=== PATIENT | male | born 1960 | race Caucasian/White ===

== ENCOUNTER 2020-03-21 21:46 | Inpatient (IN) | payer MEDICARE, MEDICAID ==
[2020-03-22 00:08] VITALS: BMI 29.5
[2020-03-22] MEDS ORDERED: Senokot S 8.6-50 MG TAB PO PRN (01:03)
[2020-03-22] MEDS ORDERED: HYDROcodone/Acetaminophen 5/325 mg Tablet PO PRN (01:03)
[2020-03-22] MEDS ORDERED: Bisacodyl 10 MG SUPP PR PRN (01:03)
[2020-03-22] MEDS ORDERED: Acetaminophen 325 MG TAB PO PRN (01:03)
[2020-03-22] MEDS ORDERED: Bisacodyl 5 MG TAB PO PRN (01:03)
[2020-03-22] MEDS ORDERED: Guaifenesin DM 100-10/5 ML UDCUP PO PRN (01:03)
[2020-03-22] MEDS ORDERED: cloNIDine 0.1 MG TAB PO PRN (01:10)
[2020-03-22] MEDS ORDERED: Morphine 2 MG/ML SYRINGE SLOW IVP PRN (01:10)
[2020-03-22] MEDS ORDERED: Promethazine HCl 12.5 MG in Sodium Chloride 0.9% 50 ML IVPB PRN (01:10)
[2020-03-22] MEDS ORDERED: Ondansetron PF 4 MG/2 ML Vial IVP PRN (01:10)
[2020-03-22] MEDS ORDERED: Labetalol HCl 100 MG/20 ML VIAL SLOW IVP PRN (01:10)
--- NOTE | 2020-03-22 01:16 | PDOC.HHP ---
Hospitalist HPI - History of Present Illness Abnormal labwork History of Present Illness: Patient is a 59 year old male with PMH HTN, GERD who presents as transfer from [place] for L ureterolithiasis and severe hydroureter, ABIODUN. he was at jail [facility] and rehab, Dr Obando, and has labwork revealing Na 157, Cr 3.1 which is worse for patient and is increased significantly from labs in December, he was sent to outside hospital for workup. There, labs performed and results as below. CT imaing performed revealing L ureterolithiasis and severe hydroureter. At outside hospital, they discussed with Dr Liao who agreed to follow and requested transfer here, patient arrived on unit, states he feels well, wants water, has trouble urinating, otherwise at baseline. pleasant and conversive. he has chronic contractions from cerebral palsy. Sister in law/contact Nettie Carter called but did not answer. Transferred here for urology eval. UA equivocal, was given ceftriaxone at outside hospital. Outside records reviewed WBC 16 hgb 10.9 plt 249 Na 146 CO2 20 Cr 2.91 AKP 144 lipase 113 UA - trace WBC, small blood, Hospitalist ROS - Review of Systems Constitutional: denies: fever, chills, sweats, weakness, malaise, other Eyes: denies: pain, vision change, conjunctivae inflammation, eyelid inflammation, redness, other ENT: denies: ear pain, ear discharge, nose pain, nose discharge, nose congestion , mouth pain, mouth swelling, throat pain, throat swelling, other Respiratory: denies: cough, dry, shortness of breath, hemoptysis, SOB with excertion, pleuritic pain, sputum, wheezing, other Cardiovascular: denies: chest pain, palpitations, orthopnea, paroxysmal noc. dyspnea, edema, light headedness, other Gastrointestinal: denies: nausea, vomiting, abdominal pain, diarrhea, constipation, melena, hematochezia, other Genitourinary: reports: dysuria, incontinence. denies: frequency, hematuria, retention Musculoskeletal: denies: neck pain, shoulder pain, arm pain, back pain, hand pain, leg pain, foot pain, other Skin: denies: rash, lesions, tere, bruising, other Neurological: denies: weakness, numbness, incoordination, change in speech, confusion, seizures, other All other systems reviewed; all pertinent +/- noted in HPI/Subj Hospitalist History - Past Medical History Other Medical History: gerd HTN cerebral palsy - Past Surgical History Other Surgical History: unknown discussed with patient - Family History Other Family History: unknown discussed with patient - Social History Smoking Status: Never smoker Alcohol: reports: None Drugs: reports: none - Exam General Appearance: NAD, awake alert Eye: PERRL, anicteric sclera ENT: normocephalic atraumatic, no oropharyngeal lesions, moist mucosa Neck: supple, symmetric, no JVD, no thyromegaly, no lymphadenopathy, no carotid bruit Heart: RRR, no murmur, no gallops, no rubs, normal peripheral pulses Respiratory: CTAB, no wheezes, no rales, no ronchi, normal chest expansion, no tachypnea, normal percussion Gastrointestinal: soft, non-tender, non-distended, normal bowel sounds, no palpable masses, no hepatomegaly, no splenomegaly, no bruit Extremities: no cyanosis, no clubbing, no edema Skin: normal turgor, no lesions, no rashes Neurological: cranial nerve grossly intact, normal sensation to touch, no weakness, no focal deficits, no new deficit Neurological - other findings: L sided contracture Musculoskeletal: normal tone, normal strength, no muscle wasting Psychiatric: normal affect, normal behavior, A&O x 3 Hospitalist Results - Labs Lab results: see HPI outside hosptial CT w/ 1x1.5cm kdiney stone in L mid ureter causing severe L sided hydronephrosis and hydroureter w/ stranding of L kidney, R kidney atrophic Hospitalist H&P A/P - Plan Plan: 59 year old male with PMH HTN, GERD admitted for: # worsening CKD/acute renal failure # 1x1.5cm kidney stone in L mid ureter # severe L sided hydronephrosis and hydroureter w/ stranding of L kidney outside hosptial CT w/ 1x1.5cm kdiney stone in L mid ureter causing severe L sided hydronephrosis and hydroureter w/ stranding of L kidney, R kidney atrophic - unknown baseline but Cr has increased from about 2 to >3 since Dec, UA equivocal started on treatment at outside hospital, will continue here - start ceftriaxone and check urine culture - apprecaiate Dr Liao urology who agreed to follow with us, NPO in case of surgery needed - hold ari inhibitor - trend BMP - IVF # hypernatremia - much less severe on labwork here, perhaps lab error? trend BMP. # HTN - resume home meds except for ari inhibitor, PRNs ordered # intellectual disability, history of cerebral palsy - noted, relatively good history obtained from documents, unable to contact sister in labs Nettie, attempt again as needed. patient pleasant and conversive, aox1-2, lives in jail
[2020-03-22] MEDS: Sodium Chloride 0.9% 1,000 ML IV SCH ×3 (02:13→23:31)
[2020-03-22 06:02] LABS: INR-International Normal Ratio 1.1
[2020-03-22 06:09] LABS: Band 1 % (5-11); Eosinophils 2 % (0-10); Hemoglobin 10.8 g/dL (14.0-18.0); Lymphocytes 19 % (21-51); MDiff Complete? YES; Mean Corpuscular Hemoglobin 29.3 pg (27.0-31.0); Mean Corpuscular Volume 91.6 fL (78.0-98.0); Mean Platelet Volume 10.7 fL (7.4-10.4); Monocytes 7 % (0-10); Neutrophil 71 % (42-75); Platelet Count 131 thou/uL (130-400); Platelet Morphology Comment Appears Adequate; White Blood Cell (WBC) Count 12.7 thou/uL (4.8-10.8)
[2020-03-22 06:36] LABS: BUN (Urea Nitrogen) 36 mg/dL (8.4-25.7); Calc. Creatinine Clearance 36 mL/min (70-130); Calcium 8.2 mg/dL (7.8-10.44); Carbon Dioxide 14 mmol/L (23-31); Chloride 118 mmol/L (98-107); Estimated GFR-MDRD 23; Glucose 88 mg/dL (80-115); Potassium 4.3 mmol/L (3.5-5.1); Sodium 145 mmol/L (136-145)
[2020-03-22] MEDS ORDERED: Famotidine 20 MG TAB PO SCH (09:00)
[2020-03-22] MEDS: Amlodipine 10 MG TAB PO SCH (09:25)
[2020-03-22] MEDS: Polyethylene Glycol 3350 17 GM Packet PO SCH (09:34)
[2020-03-22] MEDS ORDERED: Ondansetron PF 4 MG/2 ML Vial ONE (09:51)
[2020-03-22] MEDS ORDERED: Lidocaine 1% PF 5 ML VIAL ONE (09:51)
[2020-03-22] MEDS ORDERED: PROPOFOL 200 MG/20 ML VIAL ONE (09:51)
[2020-03-22] MEDS ORDERED: EPHEDRINE 25 MG/5 ML SYRINGE ONE (09:51)
[2020-03-22] MEDS ORDERED: Dexamethasone 20 MG/5 ML VIAL ONE (09:51)
[2020-03-22 10:03] LABS: Anion Gap 17 mmol/L (10-20)
[2020-03-22] MEDS ORDERED: Iothalamate Meglumine 60% 30 ML VIAL FS ONE (11:48)
--- NOTE | 2020-03-22 12:20 | PDOC.HOSPP ---
- Subjective Encounter Date: 03/22/20 Encounter Time: 08:50 Subjective: not in distress communicates well and follows verbal stimuli mild right quadrants pain, no nausea wants to eat breakfast - Objective Vital Signs & Weight: Vital Signs (12 hours) Temp Pulse Resp BP BP Pulse Ox 03/22/20 09:38 80 167/89 H 03/22/20 09:25 80 183/68 H 03/22/20 07:52 98.1 F 80 20 183/68 H 95 Weight Weight 205 lb 14.4 oz I&O: 03/21/20 03/22/20 03/23/20 06:59 06:59 06:59 Intake Total 740 Balance 740 Result Diagrams: 03/22/20 05:42 03/22/20 05:42 Hospitalist ROS - Medication Medications: Active Medications Generic Name Dose Route Start Last Admin Trade Name Freq PRN Reason Stop Dose Admin Amlodipine Besylate 10 mg 03/22/20 09:00 03/22/20 09:25 Norvasc PO 10 mg DAILY EMILIA Administration Sodium Chloride 1,000 mls @ 100 mls/hr 03/22/20 01:15 03/22/20 02:13 Normal Saline 0.9% IV 1,000 mls .Q10H EMILIA Administration Pantoprazole Sodium 40 mg 03/22/20 09:00 03/22/20 09:26 Protonix PO 40 mg DAILY EMILIA Administration Polyethylene Glycol 17 gm 03/22/20 09:00 03/22/20 09:34 Miralax PO Not Given DAILY EMILIA Sodium Chloride 10 ml 03/22/20 09:00 03/22/20 09:33 Flush - Normal Saline IVF Not Given Q12HR EMILIA - Exam General Appearance: awake alert Eye: PERRL, anicteric sclera ENT: no oropharyngeal lesions, moist mucosa Neck: supple, no JVD Heart: RRR, no murmur Respiratory: no wheezes, no rales Gastrointestinal: soft, non-tender, non-distended, normal bowel sounds Extremities: no cyanosis, no edema Neurological: cranial nerve grossly intact, no focal deficits Hosp A/P (1) left ureterolithiasis Status: Acute (2) Hydronephrosis, left Code(s): N13.30 - UNSPECIFIED HYDRONEPHROSIS Status: Acute (3) Renal colic on left side Code(s): N23 - UNSPECIFIED RENAL COLIC Status: Acute (4) Intellectual disability Code(s): F79 - UNSPECIFIED INTELLECTUAL DISABILITIES Status: Chronic (5) ABIODUN (acute kidney injury) Code(s): N17.9 - ACUTE KIDNEY FAILURE, UNSPECIFIED Status: Acute (6) Metabolic acidosis Code(s): E87.2 - ACIDOSIS Status: Acute (7) HTN (hypertension) Code(s): I10 - ESSENTIAL (PRIMARY) HYPERTENSION Status: Chronic Qualifiers: Hypertension type: essential hypertension Qualified Code(s): I10 - Essential (primary) hypertension - Plan is npo for possible urologic procedure by is on ceftriaxone, iv fluids, norvasc, nebs prn creatinine around 2.8, hco3 is 14 hemostable
[2020-03-22] MEDS ORDERED: cefTRIAXone\\ROCEPHIN 1 GM VIAL ONE (12:32)
[2020-03-22] MEDS ORDERED: Sodium Chloride 0.9% 100 ML ONE (12:32)
[2020-03-22] MEDS ORDERED: Fentanyl 100 MCG/2 ML VIAL ONE (13:15)
[2020-03-22] MEDS ORDERED: Promethazine HCl 25 MG/ML VIAL SLOW IVP PRN (13:55)
[2020-03-22] MEDS ORDERED: Promethazine HCl 25 MG/ML VIAL IM PRN (13:55)
[2020-03-22] MEDS ORDERED: Ondansetron HCl/PF 4 MG/2 ML Vial IVP PRN (13:55)
--- NOTE | 2020-03-22 14:08 | RAD ---
RETROGRADE PYELOGRAM: 03/22/20 HISTORY: Stent placement. A single image is presented for interpretation which is showing placement of a left ureteral stent. IMPRESSION: Left ureteral stent placement. POS: YUNIER
--- NOTE | 2020-03-22 20:49 | CON ---
DATE OF CONSULTATION: 03/22/2020 CONSULTING PHYSICIAN: Quang Liao MD. REASON FOR CONSULTATION: Ureteral stone with acute kidney injury. HISTORY OF PRESENT ILLNESS: Mr. Carter is a 59-year-old white male with cerebral palsy, who was transferred from [facility] for ureterolithiasis, severe hydronephrosis and acute kidney injury. He was at his fci in [facility], where he had lab work done demonstrating a creatinine that was elevated over the past three months. His sodium initially was okay, but subsequently on the most recent check came up to 157. He was then sent to [facility] ER for workup. He underwent a CT scan there, which demonstrated a 1 cm left mid ureteral stone with severe hydronephrosis and what appeared to be an atrophic right kidney. The patient was then transferred to [place] for definitive management. I was contacted upon the transfer. The patient is unable to give any adequate history as he has a fairly severe MR. Most of the history is obtained through medical records and medical staff. The patient's [id number] is apparently his primary power of gambreler at the current time. Per outside records, he does apparently have some difficulty urinating at baseline, but otherwise has not had any other significant problems. It is unclear whether the patient has had previous urolithiasis. ALLERGIES: 1. ARICEPT. 2. BACTRIM. 3. HYDROCHLOROTHIAZIDE. 4. ALL THIAZIDE TYPE DIURETICS. HOME MEDICATIONS: It is unknown at this point what medications the patient is currently taking. PAST MEDICAL HISTORY: 1. Glaucoma. 2. Gastroesophageal reflux disease. 3. Cerebral palsy. 4. Hypertension. 5. Depression. 6. Anxiety. 7. Dementia. 8. Muscle atrophy. 9. Hypokalemia. PAST SURGICAL HISTORY: Unknown. FAMILY HISTORY: Noncontributory, not able to be obtained from the patient. SOCIAL HISTORY: The patient apparently is residing at [facility]. It is unclear whether or not he has previously or currently uses any type of alcohol, tobacco products, or illicit drug use. REVIEW OF SYSTEMS: A 12-point review of systems unable to be obtained secondary to the patient's significant MR and inability to answer questions appropriately. PHYSICAL EXAMINATION: VITAL SIGNS: Current vitals are stable. GENERAL: No apparent distress. He is alert. He does not answer questions appropriately, but does answer simple questions. Well nourished, well developed, overweight. HEENT: Normocephalic, atraumatic. Pupils are symmetric and round. Trachea midline. Moist mucous membranes. CARDIOVASCULAR: Regular rate and rhythm. Normal S1, S2. Symmetric pulses. CHEST: No increased work of breathing. Symmetric expansion of lungs, clear anteriorly. ABDOMEN: Soft, nontender, and nondistended. Positive bowel sounds. Difficult to palpate organs secondary to obesity. No obvious hernias. : The patient is circumcised. No lesions or rashes noted. The patient is incontinent. Does wear a diaper. EXTREMITIES: No clubbing, cyanosis, or edema. MUSCULOSKELETAL: There is severe lower extremity atrophy as well as deformity secondary to the patient's cerebral palsy. Upper extremities appear relatively unremarkable. Range of motion was not tested. NEUROLOGICAL: Cranial nerves 2 through 12 appear grossly intact. There is significantly decreased motor strength of the lower extremities. Upper extremities seem relatively normal for the most part. SKIN: Warm, dry. No rashes or lesions. Good turgor. PSYCHIATRIC: Alert and oriented x2. Mood and affect seem somewhat simple, but otherwise appropriate. LABORATORY EVALUATION: A full set of labs are in the [facility] system, which I have reviewed. Of note, the patient's white count is 12.7. Creatinine of 2.81, sodium of 145. UA demonstrates hazy colored urine, trace leukocyte esterase, negative nitrites, 1+ bacteria, 7 to 10 white cells, 4 to 6 red cells. ASSESSMENT AND PLAN: A 59-year-old white male with cerebral palsy and acute kidney injury secondary to a left mid ureteral stone measuring about 1 cm and a solitary functioning kidney. It is questionable how much function the right kidney has given the atrophy. In either case, the patient does urgently need a ureteral stent to allow for drainage of the kidney. The patient does have a little bit of an elevated white count and UA, which is not entirely exclusively urinary infection. Therefore, I would not recommend ureteroscopy at this time. I will go ahead and just place a stent now and obtain a urine culture. If the culture is negative, I think we can proceed in the near future with ureteroscopy and removal of the stone. The patient will be at relatively high risk for ureteral stricture given that he has had a long-term impacted stone. Nonetheless, we will go ahead and remove this and follow the patient afterwards to see how he is doing. On this current admission, I think the patient can be discharged when he shows improvement of his renal function after a stent placement. We will then schedule his ureteroscopy at a subsequent date. Job ID: [id number]
--- NOTE | 2020-03-22 20:50 | OP ---
DATE OF PROCEDURE: 03/22/2020 SERVICE: Urology. PREOPERATIVE DIAGNOSIS: Left ureteral stone with acute kidney injury. POSTOPERATIVE DIAGNOSIS: Left ureteral stone with acute kidney injury. PROCEDURE PERFORMED: Cystoscopy and left ureteral stent placement, 6 x 26 double-J stent. INDICATION FOR PROCEDURE: Mr. Carter is a 59-year-old white male with a solitary functioning left kidney with atrophic right kidney and a left ureteral stone with acute kidney injury. He was transferred from [facility] for the acute kidney injury and hypernatremia. His kidney function has improved along with his sodium with hydration. He is now being brought to the operating room for cystoscopy and ureteral stent placement. Risks and benefits were discussed with the sister-in- law who is his power of corporate associate attorney and she has agreed to proceed forward. DESCRIPTION OF PROCEDURE: After identification of armband and verification of consent patient was brought back to the operating room, where he underwent general anesthesia with an LMA. He was then placed in the dorsal lithotomy position and prepped and draped in usual sterile fashion. After appropriate time-out, a lubricated 22-Japanese rigid cystoscope was introduced per urethra into the bladder. The prostate was minimally obstructive. The bladder shows heavy trabeculation with poor capacity. Both ureters were in the orthotopic location. There were no stones or lesions noted. Attention was turned to left ureteral orifice which was cannulated with a 0.035 Glidewire. The wire was able to be manipulated past the stone with a little bit of difficulty, but ultimately went up into the renal calyx. A 6 x 26 double-J stent was advanced over the Glidewire up to the level of the kidney and then the Glidewire removed leaving a good curl in the kidney and a good curl in the bladder. The bladder was then emptied and cystoscope removed. The patient then awakened and taken to PACU for recovery in stable condition. COMPLICATIONS: None. ESTIMATED BLOOD LOSS: Minimal. RETAINED TUBES AND DRAINS: A 6 x 26 double-J stent on the left. SPECIMEN: None. DISPOSITION: The patient will be admitted back to the hospitalist Service. Once he has evidence of improved renal function, he can be discharged home. We have taken a urine culture during the case. If his urine culture is negative, we can bring him back in the near future for ureteroscopy. If there is evidence of urinary tract infection, we will plan to treat for antibiotics for 7 days and then plan for surgery once his infection is cleared. Job ID: [id number] [facility]
[2020-03-22] MEDS: cefTRIAXone\\ROCEPHIN 1 GM in Sodium Chloride 0.9% 100 ML IVPB SCH (23:32)
[2020-03-23 05:14] LABS: Bacteria/HPF 1+ HPF (None Seen); Bilirubin Negative (Negative); Blood, Urine 1+ (Negative); Clarity Clear (Clear); Glucose, Urine (Dipstick) Normal (Negative); Leukocyte 25 Leu/uL (Negative); Nitrite Negative (Negative); Protein, Urine (Dipstick) 100 mg/dL (Neg-Trace); RBC/HPF 21-50 HPF (0-3); Squamous Epithelial None Seen HPF (0-3); Urobilinogen Normal mg/dL (Less than 2)
[2020-03-23] MEDS: Amlodipine 10 MG TAB PO SCH (08:27)
[2020-03-23] MEDS: Famotidine 20 MG TAB PO SCH (08:27)
[2020-03-23] MEDS: Enoxaparin Sodium 40 MG/0.4 ML SYRINGE SC SCH (08:28)
[2020-03-23] MEDS: Sodium Chloride 0.9% 1,000 ML IV SCH ×2 (10:10→17:30)
[2020-03-23] MEDS: Polyethylene Glycol 3350 17 GM Packet PO SCH (10:10)
[2020-03-23 10:41] LABS: #Monocytes 0.3 thou/uL (0.11-0.59); #Neutrophils 11.7 thou/uL (1.40-6.50); %Basophils 0.1 % (0.0-1.0); %Eosinophils 0.1 % (0.0-10.0); %Lymphocytes 7.9 % (21.0-51.0); %Monocytes 2.4 % (0.0-10.0); %Neutrophils 89.6 % (42.0-75.0); Mean Corpuscular HGB CONC 32.2 g/dL (32.0-36.0); Mean Corpuscular Hemoglobin 29.5 pg (27.0-31.0); Mean Corpuscular Volume 91.6 fL (78.0-98.0); Mean Platelet Volume 9.8 fL (7.4-10.4); Platelet Count 233 thou/uL (130-400); RBC Distribution Width 13.9 % (11.5-14.5); Red Blood Cell (RBC) Count 3.71 mill/uL (4.70-6.10); White Blood Cell (WBC) Count 13.1 thou/uL (4.8-10.8)
[2020-03-23 11:03] LABS: ALT (SGPT) 9 U/L (8-55); AST (SGOT) 10 U/L (5-34); Albumin 3.3 g/dL (3.4-4.8); Alkaline Phosphatase 129 U/L (40-110); Anion Gap 16 mmol/L (10-20); BUN (Urea Nitrogen) 42 mg/dL (8.4-25.7); Bilirubin, Total 0.3 mg/dL (0.2-1.2); Calc. Creatinine Clearance 33 mL/min (70-130); Calcium 7.7 mg/dL (7.8-10.44); Carbon Dioxide 17 mmol/L (23-31); Chloride 109 mmol/L (98-107); Estimated GFR-MDRD 21; Globulin 3.5 g/dL (2.4-3.5); Glucose 251 mg/dL (80-115); Potassium 3.9 mmol/L (3.5-5.1); Protein, Total 6.8 g/dL (5.8-8.1); Sodium 138 mmol/L (136-145)
--- NOTE | 2020-03-23 12:13 | PDOC.HOSPP ---
- Subjective Encounter Date: 03/23/20 Encounter Time: 09:00 Subjective: no sob or abd pain ate his breakfast well - Objective Vital Signs & Weight: Vital Signs (12 hours) Temp Pulse Resp BP BP Pulse Ox 03/23/20 11:06 97.4 F L 81 14 167/69 H 96 03/23/20 08:27 90 166/87 H 03/23/20 08:00 95 03/23/20 07:24 98.2 F 90 14 166/87 H 95 03/23/20 06:05 97.6 F 87 18 169/71 H 96 Weight Weight 205 lb 14.4 oz I&O: 03/22/20 03/23/20 03/24/20 06:59 06:59 06:59 Intake Total 740 1680 Balance 740 1680 Result Diagrams: 03/23/20 10:24 03/23/20 10:24 Hospitalist ROS - Medication Medications: Active Medications Generic Name Dose Route Start Last Admin Trade Name Freq PRN Reason Stop Dose Admin Amlodipine Besylate 10 mg 03/22/20 09:00 03/23/20 08:27 Norvasc PO 10 mg DAILY EMILIA Administration Enoxaparin Sodium 40 mg 03/23/20 09:00 03/23/20 08:28 Lovenox SC 40 mg 0900 EMILIA Administration Famotidine 20 mg 03/23/20 09:00 03/23/20 08:27 Pepcid PO 20 mg DAILY EMILIA Administration Sodium Chloride 1,000 mls @ 100 mls/hr 03/22/20 01:15 03/23/20 10:10 Normal Saline 0.9% IV Not Given .Q10H EMILIA Ceftriaxone Sodium 1 gm/ 100 mls @ 200 mls/hr 03/22/20 23:00 03/22/20 23:32 Sodium Chloride IVPB 03/28/20 23:01 100 mls Q24HR EMILIA Administration Pantoprazole Sodium 40 mg 03/22/20 09:00 03/23/20 08:27 Protonix PO 40 mg DAILY EMILIA Administration Polyethylene Glycol 17 gm 03/22/20 09:00 03/23/20 10:10 Miralax PO Not Given DAILY EMILIA Sodium Chloride 10 ml 03/22/20 09:00 03/23/20 10:10 Flush - Normal Saline IVF Not Given Q12HR EMILIA - Exam General Appearance: awake alert Eye: PERRL, anicteric sclera ENT: no oropharyngeal lesions, moist mucosa Neck: supple, no JVD Heart: RRR, no murmur Respiratory: no wheezes, no rales Gastrointestinal: soft, non-tender, non-distended, normal bowel sounds Extremities: no cyanosis, no edema Neurological: cranial nerve grossly intact, no new deficit Hosp A/P (1) left ureterolithiasis Status: Acute (2) Hydronephrosis, left Code(s): N13.30 - UNSPECIFIED HYDRONEPHROSIS Status: Acute (3) Renal colic on left side Code(s): N23 - UNSPECIFIED RENAL COLIC Status: Acute (4) Intellectual disability Code(s): F79 - UNSPECIFIED INTELLECTUAL DISABILITIES Status: Chronic (5) ABIODUN (acute kidney injury) Code(s): N17.9 - ACUTE KIDNEY FAILURE, UNSPECIFIED Status: Acute (6) Metabolic acidosis Code(s): E87.2 - ACIDOSIS Status: Acute (7) HTN (hypertension) Code(s): I10 - ESSENTIAL (PRIMARY) HYPERTENSION Status: Chronic Qualifiers: Hypertension type: essential hypertension Qualified Code(s): I10 - Essential (primary) hypertension - Plan is s/p stent to left ureter 03/22/2020 is on ceftriaxone, iv fluids, norvasc, nebs prn creatinine around 3, nephrology consult, may need usg in am if creatinine raises up he is a snf resident with intellectual disability but communicates and follows verbal stimuli will give updates to sister in law later today hemostable
[2020-03-23] MEDS: cefTRIAXone\\ROCEPHIN 1 GM in Sodium Chloride 0.9% 100 ML IVPB SCH (23:55)
--- NOTE | 2020-03-24 00:05 | CON ---
DATE OF CONSULTATION: HISTORY OF PRESENT ILLNESS: Mr. Carter is a 59-year-old white male with known history of cerebral palsy and was initially admitted for an acute kidney injury. There was a left hydronephrosis on imaging and he has undergone cystoscopy with left ureteral stent placement. We are now being consulted for the acute kidney injury on top of his chronic renal failure. Renal function is relatively stable, but not dramatically improved after placement of the ureteral stent as well as with IV hydration. Imaging suggested that his right kidney is atrophic and the left kidney has some degree of chronicity. My optimism for a dramatic improvement with his kidney function is less. He may have a chronic renal failure from chronic obstructive uropathy. Since the patient has cerebral palsy and he is not able to communicate, he probably was not able to complain of some flank pain in the past. In addition, he does wear a diaper. REVIEW OF SYSTEMS: Positive for no chest pain or shortness of breath. No nausea. No vomiting. No diarrhea. No constipation. No productive cough. No fever or chills. Denies any abdominal pain. PAST MEDICAL HISTORY: Includes GERD, cerebral palsy, hypertension, depression, anxiety, glaucoma. HOME MEDICATIONS: Not currently available, but he is currently on the following hospital medications of: 1. [place] 5/325 q.4. 2. DuoNeb q.2 p.r.n. 3. Norvasc 10 mg daily. 4. Ceftriaxone 1 g q.24 hours. 5. Lovenox 40 mg subcu daily. 6. Pepcid 20 mg daily. 7. Protonix 40 mg daily. 8. Normal saline 100 mL/hour. PAST MEDICAL HISTORY: 1. Recent diagnosis of chronic renal failure from obstructive uropathy. 2. Recent finding of an indirect inguinal hernia, left-sided. PAST SURGICAL HISTORY: Status post left ureteral stent placement, status post cystoscopy. SOCIAL HISTORY: The patient is a resident in [facility]. He is single. No children. He is medically disabled from cerebral palsy. No smoking. No alcohol intake. No IV drug abuse. FAMILY HISTORY: Two other siblings, but he is an adopted child from the family. The two other siblings are . He is being taken care by his [id number]. ALLERGIES: 1. ARICEPT. 2. BACTRIM. 3. HYDROCHLOROTHIAZIDE. TRAUMA: None. IMMUNIZATION: Up-to-date. HOSPITALIZATIONS: Please see past medical history. FAMILY HISTORY: No family history of ESRD. PHYSICAL EXAMINATION: VITAL SIGNS: Blood pressure 161/80, heart rate 72, respiratory rate 14, temperature 97.4, and pulse ox 95 percent on room air. GENERAL: The patient is awake. He is alert. He has a limited verbal response to my questioning. He is not fully oriented. SKIN: Adequate turgor. HEENT: He has pinkish conjunctivae. Anicteric sclerae. NECK: No neck mass. No carotid bruits. No JVD. CHEST: No deformities. LUNGS: Clear breath sounds. HEART: Normal sinus rhythm. No murmurs, no gallops, no rubs. ABDOMEN: Globular, soft nontender. No masses. EXTREMITIES: Deformed extremities with some degree of contracture. LABORATORY DATA: Laboratories of March 23, 2020; white count 13.1, hemoglobin 11, sodium 138, potassium 3.9, chloride 109, carbon dioxide 17, BUN 42, creatinine 3.1, GFR 21 mL/minute, glucose 251, calcium 7.7, albumin 3.3. March 22, 2020; BUN 36, creatinine 2.81. March 21, 2020; BUN 39, creatinine 2.91. April 15, 2013; creatinine 0.47. ASSESSMENT/PLAN: 1. Chronic renal failure - most likely secondary to chronic obstructive uropathy. Right kidney is noted to be atrophic, probably from chronic obstruction. Left kidney showed some scarring of the left kidney. He also has severe marked hydronephrosis. Currently, a ureteral stent placement has been done. I will agree with current management. Continue supportive care. Continue gentle volume hydration. No indication for any dialytic intervention. I had a long discussion with the [id number] regarding prognosis of his chronic renal failure. 2. We will be rechecking PTH as well as serum phosphorus tomorrow. 3. Overall agree with current management. Job ID: [id number]
[2020-03-24 05:27] LABS: #Lymphocytes 1.5 thou/uL (1.20-3.40); #Monocytes 0.8 thou/uL (0.11-0.59); #Neutrophils 10.9 thou/uL (1.40-6.50); %Eosinophils 0.1 % (0.0-10.0); %Lymphocytes 11.2 % (21.0-51.0); %Monocytes 6.2 % (0.0-10.0); %Neutrophils 82.3 % (42.0-75.0); Hemoglobin 10.6 g/dL (14.0-18.0); Mean Corpuscular Hemoglobin 28.9 pg (27.0-31.0); Mean Corpuscular Volume 90.5 fL (78.0-98.0); Mean Platelet Volume 9.9 fL (7.4-10.4); Platelet Count 232 thou/uL (130-400); Red Blood Cell (RBC) Count 3.65 mill/uL (4.70-6.10); White Blood Cell (WBC) Count 13.3 thou/uL (4.8-10.8)
[2020-03-24 05:50] LABS: ALT (SGPT) 9 U/L (8-55); AST (SGOT) 10 U/L (5-34); Albumin 3.2 g/dL (3.4-4.8); Alkaline Phosphatase 114 U/L (40-110); Anion Gap 14 mmol/L (10-20); BUN (Urea Nitrogen) 46 mg/dL (8.4-25.7); Bilirubin, Total 0.2 mg/dL (0.2-1.2); Calc. Creatinine Clearance 35 mL/min (70-130); Calcium 7.7 mg/dL (7.8-10.44); Carbon Dioxide 20 mmol/L (23-31); Chloride 113 mmol/L (98-107); Estimated GFR-MDRD 22; Globulin 3.5 g/dL (2.4-3.5); Glucose 124 mg/dL (80-115); Potassium 3.5 mmol/L (3.5-5.1); Protein, Total 6.7 g/dL (5.8-8.1); Sodium 143 mmol/L (136-145)
--- NOTE | 2020-03-24 06:48 | PRG ---
DATE OF SERVICE: 03/23/2020 SUBJECTIVE: The patient is still looking good physically. He does not answer questions appropriately due to severe MR. Family members are not available at bedside at the current time of the visit. OBJECTIVE: VITAL SIGNS: Temperature 97.4, pulse 72, respirations 14, blood pressure 161/80, saturation 95% on room air. GENERAL: In no apparent distress. Alert, answering questions, but inappropriately. CARDIOVASCULAR: Regular rate and rhythm. ABDOMEN: Soft, nontender, and nondistended. Positive bowel sounds. : No swelling, edema, or erythema. No catheter in place. EXTREMITIES: No clubbing, cyanosis, or edema. LABORATORY EVALUATION: Full set of labs is in the [facility] system, which I have reviewed. Of note, the patient's white count has increased slightly to 13.1. Creatinine has also worsened slightly to 3.1. ASSESSMENT AND PLAN: A 59-year-old white male with cerebral palsy and mental retardation with solitary functioning left kidney, status post left ureteral stent placement with worsening creatinine. It is unclear at this time why the patient's creatinine has worsened after stent placement. On reviewing notes from [facility], apparently the patient got a noncontrasted scan; although at the time of his stent placement, it was unclear if there was an opacity within the renal pelvis consistent with retained contrast. I am not sure if the patient did get contrast or not; although I do not think he did based on what was written, although I do not have the actual imaging report. I do see that Nephrology has been consulted, and I agree with involving them at this point. I would recommend checking his creatinine tomorrow and continue to monitor. A Jernigan catheter may become necessary if the patient needs strict inputs and outputs as the patient is incontinent and voids into a diaper, and it is unclear exactly how much he is urinating. I will continue to follow and make recommendations as necessary. We will defer on ureteroscopy until the patient's renal failure has improved. Job ID: [id number]
[2020-03-24] MEDS: Sodium Chloride 0.9% 1,000 ML IV SCH ×2 (06:49→20:00)
[2020-03-24] MEDS: Polyethylene Glycol 3350 17 GM Packet PO SCH (08:39)
[2020-03-24] MEDS: Enoxaparin Sodium 40 MG/0.4 ML SYRINGE SC SCH (08:39)
[2020-03-24] MEDS: Famotidine 20 MG TAB PO SCH (08:40)
[2020-03-24] MEDS: Amlodipine 10 MG TAB PO SCH (08:40)
[2020-03-24] MEDS ORDERED: Enoxaparin Sodium 30 MG/0.3 ML SYRINGE SC SCH (09:00)
[2020-03-24] MEDS: hydrALAZINE 20 MG/ML VIAL SLOW IVP PRN (09:08)
--- NOTE | 2020-03-24 09:41 | PRG ---
DATE OF SERVICE: 03/24/2020 SUBJECTIVE: Mr. Carter is a 59-year-old white male, who was admitted for obstructive uropathy. He underwent an emergent cystoscopy with ureteral stent placement. He was also empirically volume repleted. We are following him up for his chronic renal failure. Our feeling is that this is chronic renal failure from chronic obstructive uropathy. He has received IV hydration with some stabilization of the creatinine. The patient voices no new complaints. He denies any chest pain or shortness of breath. OBJECTIVE: VITAL SIGNS: Blood pressure is 175/96, heart rate 89, respiratory rate 16, temperature 97.9, pulse ox 98%. GENERAL: Awake, alert, comfortable, not in distress. SKIN: Adequate turgor. HEENT: Pinkish conjunctivae. Anicteric sclerae. NECK: No neck mass. No carotid bruits. No JVD. CHEST: No deformities. LUNGS: Clear breath sounds. HEART: Normal sinus rhythm. No murmurs, gallops, or rubs. ABDOMEN: Globular, soft, and nontender. No masses. EXTREMITIES: No edema. No deformities. MEDICATIONS: Medications of March 24, 2020, was reviewed. LABORATORY DATA: Laboratories of March 24, 2020; white count 13.2, hemoglobin 10.6 , sodium 143, potassium 3.5, chloride 107, carbon dioxide 20, BUN 46, creatinine 2.94, calcium 7.7, albumin is 3.2. Urinalysis of March 22, 2020, showed protein of 100, RBC 21 to 50, WBC 7 to 10. ASSESSMENT AND PLAN: 1. Chronic renal failure secondary to chronic obstructive uropathy. Continue supportive care. The patient is status post left ureteral stent placement. Urology is also following. Agree with current management. Continue IV fluid. 2. Hypertension. We will start the patient on beta mario of metoprolol 25 mg p.o. b.i.d. He will continue with the other current antihypertensive regimen. As previously mentioned, I had a discussion with the patient's [id number] regarding overall prognosis with his chronic renal failure. Continue to optimize renal function. 3. Overall, agree with current management. Job ID: [id number] MTDD
[2020-03-24] MEDS: Metoprolol Tartrate 25 MG TAB PO SCH (19:55)
--- NOTE | 2020-03-24 21:58 | PDOC.HOSPP ---
- Subjective Encounter Date: 03/24/20 Encounter Time: 13:30 Subjective: Patient seen and examined for ABIODUN/UTI. No new complaints. No overnight events - Objective Vital Signs & Weight: Vital Signs (12 hours) Temp Pulse Resp BP Pulse Ox 03/24/20 19:43 98 F 94 18 169/80 H 97 03/24/20 15:25 97.9 F 88 16 163/90 H 96 03/24/20 11:04 97.9 F 100 16 163/90 H 97 Weight Weight 205 lb 14.4 oz I&O: 03/23/20 03/24/20 03/25/20 06:59 06:59 06:59 Intake Total 1680 Balance 1680 Result Diagrams: 03/24/20 04:47 03/24/20 04:47 Radiology Reviewed by me: Yes (CT - reviewed) Hospitalist ROS - Review of Systems ROS unobtainable: due to mental status - Medication Medications: Active Medications Generic Name Dose Route Start Last Admin Trade Name Freq PRN Reason Stop Dose Admin Amlodipine Besylate 10 mg 03/22/20 09:00 03/24/20 08:40 Norvasc PO 10 mg DAILY EMILIA Administration Enoxaparin Sodium 30 mg 03/24/20 09:00 03/24/20 08:43 Lovenox SC 30 mg 0900 EMILIA Administration Famotidine 20 mg 03/23/20 09:00 03/24/20 08:40 Pepcid PO 20 mg DAILY EMILIA Administration Hydralazine HCl 10 mg 03/22/20 01:10 03/24/20 09:08 Apresoline SLOW IVP 10 mg Q6H PRN Administration SBP GREATER THAN 160 Sodium Chloride 1,000 mls @ 100 mls/hr 03/22/20 01:15 03/24/20 20:00 Normal Saline 0.9% IV Not Given .Q10H EMILIA Ceftriaxone Sodium 1 gm/ 100 mls @ 200 mls/hr 03/22/20 23:00 03/23/20 23:55 Sodium Chloride IVPB 03/28/20 23:01 100 mls Q24HR EMILIA Administration Metoprolol Tartrate 25 mg 03/24/20 21:00 03/24/20 19:55 Lopressor PO 25 mg BID EMILAI Administration Pantoprazole Sodium 40 mg 03/22/20 09:00 03/24/20 08:40 Protonix PO 40 mg DAILY EMILIA Administration Polyethylene Glycol 17 gm 03/22/20 09:00 03/24/20 08:39 Miralax PO 17 gm DAILY EMILIA Administration Sodium Chloride 10 ml 03/22/20 09:00 03/24/20 20:01 Flush - Normal Saline IVF Not Given Q12HR EMILIA - Exam General Appearance: NAD Heart: RRR, no gallops Respiratory: no wheezes, no rales Gastrointestinal: non-tender, non-distended, normal bowel sounds Extremities: no cyanosis Hosp A/P - Plan DVT proph w/SCDs Left ureterolithiasis with hydronephrosis s/p stent placement ABIODUN on CKD 4 Metabolic acidosis Chronic Anemia prob due to nutritional def GERD Cerebral palsy HTN Hypernatremia PLAN: Cont IVF Cont IV Cefriaxone Cultures negative Cont other meds as above AM labs
[2020-03-24] MEDS: cefTRIAXone\\ROCEPHIN 1 GM in Sodium Chloride 0.9% 100 ML IVPB SCH (23:17)
[2020-03-25] MEDS: Sodium Chloride 0.9% 1,000 ML IV SCH ×4 (00:50→20:08)
[2020-03-25 05:25] LABS: #Eosinphils 0.2 thou/uL (0.0-0.7); #Monocytes 1.3 thou/uL (0.11-0.59); #Neutrophils 8.8 thou/uL (1.40-6.50); %Basophils 0.4 % (0.0-1.0); %Eosinophils 1.7 % (0.0-10.0); %Lymphocytes 22.1 % (21.0-51.0); %Neutrophils 65.7 % (42.0-75.0); Hemoglobin 10.8 g/dL (14.0-18.0); Mean Corpuscular HGB CONC 32.9 g/dL (32.0-36.0); Mean Corpuscular Hemoglobin 29.8 pg (27.0-31.0); Mean Corpuscular Volume 90.3 fL (78.0-98.0); Platelet Count 231 thou/uL (130-400); RBC Distribution Width 14.1 % (11.5-14.5); Red Blood Cell (RBC) Count 3.64 mill/uL (4.70-6.10); White Blood Cell (WBC) Count 13.3 thou/uL (4.8-10.8)
[2020-03-25 05:42] LABS: Phosphorus 4.3 mg/dL (2.3-4.7)
[2020-03-25 06:00] LABS: Anion Gap 14 mmol/L (10-20); BUN (Urea Nitrogen) 53 mg/dL (8.4-25.7); Calc. Creatinine Clearance 34 mL/min (70-130); Calcium 6.5 mg/dL (7.8-10.44); Carbon Dioxide 21 mmol/L (23-31); Chloride 115 mmol/L (98-107); Estimated GFR-MDRD 21; Glucose 117 mg/dL (80-115); Potassium 3.2 mmol/L (3.5-5.1); Sodium 147 mmol/L (136-145)
[2020-03-25] MEDS ORDERED: Potassium Chloride 20 MEQ TAB PO SCH (07:30)
[2020-03-25] MEDS: Polyethylene Glycol 3350 17 GM Packet PO SCH (08:57)
[2020-03-25] MEDS: Heparin 5,000 UNITS/ML VIAL SC SCH ×2 (08:57→20:06)
[2020-03-25] MEDS: Metoprolol Tartrate 25 MG TAB PO SCH ×2 (08:58→20:06)
[2020-03-25] MEDS: Amlodipine 10 MG TAB PO SCH (08:58)
[2020-03-25] MEDS: Famotidine 20 MG TAB PO SCH (08:58)
[2020-03-25] MEDS ORDERED: Calcitriol 0.25 MCG CAP PO SCH (09:30)
--- NOTE | 2020-03-25 09:49 | PRG ---
DATE OF SERVICE: 03/25/2020 SUBJECTIVE: Mr. Carter is a 59-year-old white male, who was admitted for an acute obstructive uropathy. He had a cystoscopy with left ureteral stent placed. We are following him up for his chronic renal failure. I feel that he has chronic renal failure from chronic obstructive uropathy. Renal function is relatively stable. No other complaints today. No chest pain or shortness of breath. OBJECTIVE: VITAL SIGNS: Blood pressure is 136/68, heart rate 84, respiratory rate 18, temperature 98.2, pulse ox 94 percent on room air. GENERAL: The patient is awake, alert, comfortable, not in distress. SKIN: Adequate turgor. HEENT: Pinkish conjunctivae, anicteric sclerae. NECK: No neck mass. No carotid bruits. No JVD. CHEST: No deformities. LUNGS: Clear breath sounds. HEART: Normal sinus rhythm. No murmur. No gallops. No rubs. ABDOMEN: Globular, soft nontender, no masses. EXTREMITIES: Noted for deformity of the lower extremities with contracture of the feet. MEDICATIONS: March 25, 2020, reviewed. LABORATORY DATA: March 25, 2020; white count 13.3, hemoglobin 10.8. Sodium 147, potassium 3.2, chloride 115, carbon dioxide 21, BUN 53, creatinine 3.03, calcium 6.5. PTH 730. ASSESSMENT AND PLAN: 1. Chronic renal failure-secondary to chronic obstructive uropathy. Relatively stable renal function. I do not think the patient will significantly improve the renal function since imaging shows atrophic right kidney and chronicity of the left kidney. No indication for any dialytic intervention. Continue supportive care. 2. Mild hypokalemia. KCl 40 mEq tab was given. 3. Hypocalcemia. Start calcitriol 0.25 mcg tablet daily. 4. Secondary hyperparathyroidism, started on calcitriol. 5. Hypokalemia, p.r.n. potassium replacement. Recheck basic metabolic profile in a.m. Job ID: [id number]
[2020-03-25] MEDS: Calcitriol 0.25 MCG CAP PO SCH (11:15)
--- NOTE | 2020-03-25 11:18 | PDOC.HOSPP ---
- Subjective Encounter Date: 03/25/20 Encounter Time: 08:45 Subjective: Patient seen and examined for obs uropathy/ABIODUN. No new complaints. No overnight events - Objective Vital Signs & Weight: Vital Signs (12 hours) Temp Pulse Resp BP Pulse Ox 03/25/20 07:28 98.2 F 84 18 136/68 94 L Weight Weight 205 lb 14.4 oz I&O: 03/24/20 03/25/20 03/26/20 06:59 06:59 06:59 Intake Total 1150 Balance 1150 Result Diagrams: 03/25/20 04:55 03/25/20 04:55 Additional Labs: Microbiology 03/22/20 13:36 Cystoscopy Urine Culture - Final 03/22/20 02:20 Urine clean catch Urine Culture - Final NO GROWTH AT 48 HOURS 03/22/20 05:42 Venous blood - Left Hand Blood Culture - Preliminary NO GROWTH AT 48 HOURS 03/22/20 05:42 Venous blood - Left Arm Blood Culture - Preliminary NO GROWTH AT 48 HOURS Hospitalist ROS - Review of Systems Cardiovascular: denies: chest pain, palpitations, orthopnea, paroxysmal noc. dyspnea, edema, light headedness, other Gastrointestinal: denies: nausea, vomiting, abdominal pain, diarrhea, constipation, melena, hematochezia, other - Medication Medications: Active Medications Generic Name Dose Route Start Last Admin Trade Name Freq PRN Reason Stop Dose Admin Amlodipine Besylate 10 mg 03/22/20 09:00 03/25/20 08:58 Norvasc PO 10 mg DAILY EMILIA Administration Calcitriol 0.25 mcg 03/26/20 09:00 03/25/20 11:15 Rocaltrol PO 0.25 mcg DAILY EMILIA Administration Famotidine 20 mg 03/23/20 09:00 03/25/20 08:58 Pepcid PO 20 mg DAILY EMILIA Administration Heparin Sodium (Porcine) 5,000 units 03/25/20 09:00 03/25/20 08:57 Heparin SC 5,000 units BID EMILIA Administration Hydralazine HCl 10 mg 03/22/20 01:10 03/24/20 09:08 Apresoline SLOW IVP 10 mg Q6H PRN Administration SBP GREATER THAN 160 Sodium Chloride 1,000 mls @ 100 mls/hr 03/22/20 01:15 03/25/20 01:11 Normal Saline 0.9% IV 1,000 mls .Q10H EMILIA Administration Ceftriaxone Sodium 1 gm/ 100 mls @ 200 mls/hr 03/22/20 23:00 03/24/20 23:17 Sodium Chloride IVPB 03/28/20 23:01 100 mls Q24HR EMILIA Administration Metoprolol Tartrate 25 mg 03/24/20 21:00 03/25/20 08:58 Lopressor PO 25 mg BID EMILIA Administration Pantoprazole Sodium 40 mg 03/22/20 09:00 03/25/20 08:58 Protonix PO 40 mg DAILY EMILIA Administration Polyethylene Glycol 17 gm 03/22/20 09:00 03/25/20 08:57 Miralax PO 17 gm DAILY EMILIA Administration Sodium Chloride 10 ml 03/22/20 09:00 03/24/20 20:01 Flush - Normal Saline IVF Not Given Q12HR EMILIA - Exam General Appearance: NAD Heart: RRR, no gallops Respiratory: no wheezes, no ronchi Gastrointestinal: non-tender, non-distended, normal bowel sounds Extremities: no cyanosis, no clubbing Hosp A/P - Plan DVT proph w/heparin, DVT proph w/SCDs Left ureterolithiasis with hydronephrosis s/p stent placement ABIODUN on CKD 4 Metabolic acidosis Chronic Anemia prob due to nutritional def GERD Cerebral palsy HTN Hypernatremia Hypocalcemia Secondary hyperPTH PLAN: Cont IV NS @ 100 Potassium replaced Cont IV Cefriaxone - cultures negative BMP in AM Cont Metoprolol Cont other meds as above DC planning
[2020-03-25] MEDS: cefTRIAXone\\ROCEPHIN 1 GM in Sodium Chloride 0.9% 100 ML IVPB SCH (22:12)
[2020-03-26] MEDS: Sodium Chloride 0.9% 1,000 ML IV SCH ×2 (04:23→22:50)
[2020-03-26 05:32] LABS: Anion Gap 16 mmol/L (10-20); BUN (Urea Nitrogen) 45 mg/dL (8.4-25.7); Calc. Creatinine Clearance 39 mL/min (70-130); Carbon Dioxide 21 mmol/L (23-31); Chloride 112 mmol/L (98-107); Estimated GFR-MDRD 25; Glucose 123 mg/dL (80-115); Potassium 3.8 mmol/L (3.5-5.1); Sodium 145 mmol/L (136-145)
[2020-03-26] MEDS: Famotidine 20 MG TAB PO SCH (09:39)
[2020-03-26] MEDS: Calcitriol 0.25 MCG CAP PO SCH (09:39)
[2020-03-26] MEDS: Amlodipine 10 MG TAB PO SCH (09:41)
[2020-03-26] MEDS: Polyethylene Glycol 3350 17 GM Packet PO SCH (09:44)
[2020-03-26] MEDS: Metoprolol Tartrate 25 MG TAB PO SCH ×2 (09:44→20:33)
[2020-03-26] MEDS: Heparin 5,000 UNITS/ML VIAL SC SCH ×2 (09:44→20:36)
--- NOTE | 2020-03-26 10:16 | PDOC.HOSPP ---
- Subjective Encounter Date: 03/26/20 Encounter Time: 09:30 Subjective: Patient seen and examined for ABIODUN/obstructive uropathy. No new complaints. No overnight events - Objective Vital Signs & Weight: Vital Signs (12 hours) Temp Pulse Resp BP Pulse Ox 03/26/20 09:41 77 03/26/20 07:39 97.8 F 77 20 153/71 H 94 L 03/26/20 03:45 98.3 F 78 18 116/72 94 L 03/25/20 23:51 98.4 F 84 18 130/62 96 Weight Weight 205 lb 14.4 oz I&O: 03/25/20 03/26/20 03/27/20 06:59 06:59 06:59 Intake Total 1150 4100 Balance 1150 4100 Result Diagrams: 03/25/20 04:55 03/26/20 04:58 Hospitalist ROS - Review of Systems Respiratory: denies: cough, dry, shortness of breath, hemoptysis, SOB with excertion, pleuritic pain, sputum, wheezing, other Cardiovascular: denies: chest pain, palpitations, orthopnea, paroxysmal noc. dyspnea, edema, light headedness, other - Medication Medications: Active Medications Generic Name Dose Route Start Last Admin Trade Name Freq PRN Reason Stop Dose Admin Amlodipine Besylate 10 mg 03/22/20 09:00 03/26/20 09:41 Norvasc PO 10 mg DAILY EMILIA Administration Calcitriol 0.25 mcg 03/26/20 09:00 03/26/20 09:39 Rocaltrol PO 0.25 mcg DAILY EMILIA Administration Famotidine 20 mg 03/23/20 09:00 03/26/20 09:39 Pepcid PO 20 mg DAILY EMILIA Administration Heparin Sodium (Porcine) 5,000 units 03/25/20 09:00 03/26/20 09:44 Heparin SC 5,000 units BID EMILIA Administration Hydralazine HCl 10 mg 03/22/20 01:10 03/24/20 09:08 Apresoline SLOW IVP 10 mg Q6H PRN Administration SBP GREATER THAN 160 Ceftriaxone Sodium 1 gm/ 100 mls @ 200 mls/hr 03/22/20 23:00 03/25/20 22:12 Sodium Chloride IVPB 03/28/20 23:01 100 mls Q24HR EMILIA Administration Sodium Chloride 1,000 mls @ 50 mls/hr 03/25/20 11:54 03/26/20 04:23 Normal Saline 0.9% IV 1,000 mls .Q20H EMILIA Administration Metoprolol Tartrate 25 mg 03/24/20 21:00 03/26/20 09:44 Lopressor PO 25 mg BID EMILIA Administration Pantoprazole Sodium 40 mg 03/22/20 09:00 03/26/20 09:40 Protonix PO 40 mg DAILY EMILIA Administration Polyethylene Glycol 17 gm 03/22/20 09:00 03/26/20 09:44 Miralax PO 17 gm DAILY EMILIA Administration Sodium Chloride 10 ml 03/22/20 09:00 03/26/20 09:44 Flush - Normal Saline IVF Not Given Q12HR EMILIA - Exam General Appearance: NAD Heart: RRR, no gallops Respiratory: no wheezes, no ronchi Gastrointestinal: non-tender, non-distended, normal bowel sounds Extremities: no cyanosis, no clubbing Hosp A/P - Plan DVT proph w/SCDs Left ureterolithiasis with hydronephrosis s/p stent placement ABIODUN on CKD 4 - improving Metabolic acidosis Chronic Anemia prob due to nutritional def GERD Cerebral palsy HTN Hypernatremia Hypocalcemia Secondary hyperPTH PLAN: Cont IV NS @ 50 on IV Cefriaxone - cultures negative Cont Metoprolol/Amlodpine and other meds as above CBC/BMP in AM DC once cleared by Nephro/Urology DC Atbx if ok with Urology
--- NOTE | 2020-03-26 10:22 | PRG ---
DATE OF SERVICE: 03/26/2020 SUBJECTIVE: Mr. Carter is a 59-year-old white male, who presented with a left hydronephrosis and underwent a cystoscopy with ureteral stent placement. He was also seen by the Renal Service for his chronic renal failure. He has underlying chronic renal failure from chronic obstructive uropathy. Renal function has been stabilizing. He was also noted to be mildly hypocalcemic yesterday and the PTH was elevated at 730. For that reason, he has been started on calcitriol 0.25 mcg tablet daily. Renal function has been stabilizing. Creatinine is now noted at 2.66, which is his best value so far. The patient voices no new complaints. OBJECTIVE: VITAL SIGNS: Blood pressure 153/71, heart rate 77, respiratory rate 20, temperature 97.8, O2 saturation 94%. GENERAL: The patient is awake, somewhat confused, but not in distress. SKIN: Adequate turgor. HEENT: He has pinkish conjunctivae. Anicteric sclerae. NECK: No neck mass. No carotid bruits. No JVD. CHEST: No deformities. LUNGS: Clear breath sounds. HEART: Normal sinus rhythm. No murmur. No gallops. No rubs. ABDOMEN: Globular, soft, nontender, no masses. EXTREMITIES: No edema, no deformities. MEDICATIONS: Medications of March 26, 2020, reviewed. LABORATORY DATA: Laboratories of March 26, 2020, sodium 145, potassium 3.8, chloride 112, carbon dioxide 21, BUN 45, creatinine 2.66, glucose 123, calcium 7, phosphorus 4.3. ASSESSMENT AND PLAN: 1. Acute kidney injury/chronic renal failure-slightly improving renal function with IV hydration. Peak creatinine noted at 2.66. He has underlying chronic renal failure, also an underlying chronic obstructive uropathy. Management is supportive. No indication for any dialytic intervention. 2. Decreased calcium/elevated PTH-calcitriol 0.25 mcg tablet daily has been started. 3. Left hydronephrosis/left ureteral stone-patient is status post cystoscopy with ureter stent placement. Doing well overall. If the patient is discharged today, we will follow up this patient from the [facility]al [facility]. Job ID: [id number]
[2020-03-26] MEDS: hydrALAZINE 20 MG/ML VIAL SLOW IVP PRN (16:56)
[2020-03-26] MEDS ORDERED: Saccharomyces boulardii 250 MG CAP PO SCH (21:00)
[2020-03-26] MEDS: cefTRIAXone\\ROCEPHIN 1 GM in Sodium Chloride 0.9% 100 ML IVPB SCH (22:50)
[2020-03-27 05:28] LABS: #Eosinphils 0.7 thou/uL (0.0-0.7); #Lymphocytes 3.5 thou/uL (1.20-3.40); #Monocytes 1.5 thou/uL (0.11-0.59); #Neutrophils 9.7 thou/uL (1.40-6.50); %Basophils 0.1 % (0.0-1.0); %Eosinophils 4.5 % (0.0-10.0); %Lymphocytes 22.6 % (21.0-51.0); %Monocytes 9.8 % (0.0-10.0); Hemoglobin 11.6 g/dL (14.0-18.0); Mean Corpuscular HGB CONC 32.2 g/dL (32.0-36.0); Mean Platelet Volume 10.2 fL (7.4-10.4); Platelet Count 239 thou/uL (130-400); RBC Distribution Width 14.1 % (11.5-14.5); White Blood Cell (WBC) Count 15.4 thou/uL (4.8-10.8)
[2020-03-27 05:39] LABS: Anion Gap 15 mmol/L (10-20); BUN (Urea Nitrogen) 39 mg/dL (8.4-25.7); Calc. Creatinine Clearance 48 mL/min (70-130); Calcium 7.3 mg/dL (7.8-10.44); Carbon Dioxide 23 mmol/L (23-31); Chloride 113 mmol/L (98-107); Estimated GFR-MDRD 32; Glucose 98 mg/dL (80-115); Potassium 3.4 mmol/L (3.5-5.1); Sodium 148 mmol/L (136-145)
[2020-03-27] MEDS ORDERED: Potassium Chloride 20 MEQ TAB PO SCH (07:15)
[2020-03-27] MEDS: Calcitriol 0.25 MCG CAP PO SCH (08:30)
[2020-03-27] MEDS: Metoprolol Tartrate 25 MG TAB PO SCH (08:31)
[2020-03-27] MEDS: Famotidine 20 MG TAB PO SCH (08:32)
[2020-03-27] MEDS: Polyethylene Glycol 3350 17 GM Packet PO SCH (08:32)
[2020-03-27] MEDS: Amlodipine 10 MG TAB PO SCH (08:33)
[2020-03-27] MEDS: Heparin 5,000 UNITS/ML VIAL SC SCH (08:34)
[2020-03-27] MEDS ORDERED: Potassium Chloride 40 MEQ in Sodium Chloride 0.45% 1,000 ML IV SCH (10:30)
--- NOTE | 2020-03-27 10:32 | PRG ---
DATE OF SERVICE: 03/27/2020 SUBJECTIVE: Mr. Carter is a 59-year-old white male, who was admitted for left hydronephrosis. He underwent cystoscopy with ureter stent placement. We are also following him up for his chronic renal failure/acute kidney injury. He has received IV hydration with slowly improving renal function. He was also noted to be hypocalcemic and elevated PTH. For that reason, he is on calcitriol. No new complaints today. No complaints of chest pain or shortness of breath. OBJECTIVE: VITAL SIGNS: Blood pressure 155/83, heart rate 92, respiratory rate 16, temperature 98.3 pulse ox 97%. GENERAL: The patient is awake, alert, comfortable, not in distress. SKIN: Adequate turgor. HEENT: He has pinkish conjunctivae. Anicteric sclerae. NECK: No neck mass. No carotid bruits. No JVD. CHEST: No deformities. LUNGS: Clear breath sounds. No wheezing. No crackles. HEART: Normal sinus rhythm. No murmur. No gallops. No rubs. ABDOMEN: Globular, soft, nontender. No masses. EXTREMITIES: No edema, no deformities. MEDICATIONS: Medications of March 27, 2020, reviewed. LABORATORIES: March 27, 2020: White count 15.4, hemoglobin 11.6 sodium 148, potassium 3.4, chloride 113, carbon dioxide 23, BUN 39, creatinine 2.13, GFR 32 mL/minute, calcium 7.3. ASSESSMENT/PLAN: 1. Acute kidney injury/chronic renal failure - superimposed prerenal azotemia. Slowly improving renal function. I agree with current management. In addition, patient has underlying chronic renal failure from chronic obstructive uropathy. Continue supportive care. No indication for any dialytic intervention. Slowly improving renal function. 2. Mild hypokalemia. P.r.n. potassium replacement. 3. Hypernatremia. Consider one-half normal saline with 40 mEq KCl and run at 75 mL/hour. 4. Status post left hydronephrosis, status post ureteral stent placement. Urology is following. Job ID: [id number]
--- NOTE | 2020-03-27 11:01 | DIS ---
DATE OF ADMISSION: 03/21/2020 DATE OF DISCHARGE: 03/27/2020 DISCHARGE DISPOSITION: Back to group home. FOLLOWUP: 1. Follow up with PCP at the nursing facility. 2. Follow up with Dr. Quang Liao as scheduled. 3. Follow up with Dr. Wilson in 2 weeks. Basic metabolic profile every 2 to 3 days is recommended until creatinine gets stabilized. The patient was seen and examined on the day of discharge. Denies any new complaints. No chest pain, shortness of breath or palpitations reported. Vital signs showed temperature of 98, pulse rate of 86, respirations of 16, blood pressure of 124/68, and O2 saturation of 97% on room air. DISCHARGE MEDICATIONS: 1. Toprol-XL was discontinued. 2. Enalapril was also discontinued. 3. Potassium chloride was reduced to daily. 4. Metoprolol tartrate 25 mg b.i.d. was started. 5. Dr. Wilson also started him on calcitriol. 6. All other home medications were left unchanged. SIGNIFICANT LABORATORY DATA: Creatinine on admission was 2.81, at discharge was 2.13, maximum creatinine was 3.10. PTH was 730. Urinalysis showed 7 to 10 wbc's with 1+ bacteria. Urine cultures have been negative. WBC on admission was 12.7 with 71% neutrophil. Blood culture is negative. CT scan of the abdomen and pelvis in the emergency room showed severe left-sided hydroureteronephrosis due to large calculus 7 cm from the ureterovesical junction. He also had atrophic right kidney with innumerable calculi. INPATIENT PROCEDURES: The patient underwent cystoscopy with left ureteral stent placement by Dr. Liao on March 22, 2020. BRIEF HOSPITAL COURSE: The patient is a 59-year-old group home resident, who was brought into the emergency room in [place] due to abnormal creatinine level. A CT scan in the emergency room was consistent with left hydroureteronephrosis. He underwent cystoscopy with stent placement. His creatinine gradually improved to 2.13 from 3.03. He was evaluated by Nephrology as well as Urology. He has been cleared by consultants for discharge. Antibiotics will be discontinued on the day of discharge since cultures have been negative. FINAL DIAGNOSES: 1. Severe left-sided hydroureteronephrosis due to large calculus 7 cm from the ureterovesical junction. 2. Acute kidney injury on suspected chronic kidney disease, stage 4, improving. 3. Metabolic acidosis. 4. Hypokalemia. 5. Hypocalcemia. 6. Elevated PTH, suspected due to secondary hyperparathyroidism. Primary care physician advised to follow. The patient has been started on calcitriol. 7. History of cerebral palsy. 8. Gastroesophageal reflux disease. 9. Chronic anemia probably due to nutritional deficiency. 10. Hypertension. 11. Hypernatremia. 12. Metabolic acidosis. 13. Moderate size left-sided indirect inguinal hernia. Time coordinating the discharge of this patient was 35 minutes. Job ID: [id number] [facility]
[2020-03-27 12:12] VITALS: BP 153/80; TEMP 97.9
== END 2020-03-27 13:18 | disposition home or self-care (01) | DRG 660 ==
LOC: SURG A 21:50 → OBSVTOIN 21:50
PROVIDERS: ADMIT Internal Medicine; ATTEND Internal Medicine
PROC: 0T778DZ Dilation of Left Ureter with Intraluminal Device, Via Natural or Artificial Opening Endoscopic (ICD-10-PCS; principal; 2020-03-22)
DX: N13.2 Hydronephrosis with renal and ureteral calculous obstruction (principal); E87.2 Acidosis; E87.0 Hyperosmolality and hypernatremia; N17.9 Acute kidney failure, unspecified; N18.4 Chronic kidney disease, stage 4 (severe); E87.6 Hypokalemia; K40.90 Unilateral inguinal hernia, without obstruction or gangrene, not specified as recurrent; G80.9 Cerebral palsy, unspecified; N25.81 Secondary hyperparathyroidism of renal origin; E83.51 Hypocalcemia; K21.9 Gastro-esophageal reflux disease without esophagitis; D53.9 Nutritional anemia, unspecified; I12.9 Hypertensive chronic kidney disease with stage 1 through stage 4 chronic kidney disease, or unspecified chronic kidney disease; F79 Unspecified intellectual disabilities; M62.50 Muscle wasting and atrophy, not elsewhere classified, unspecified site; F03.90 Unspecified dementia, unspecified severity, without behavioral disturbance, psychotic disturbance, mood disturbance, and anxiety; D63.1 Anemia in chronic kidney disease
CPT/HCPCS: 36415; 74420; 80048; 80053; 81001; 83970; 84100; 85007; 85025; 85027; 85610; 87040; 87086; C1769; J0360; J0696; J1100; J1644; J1650; J2001; J2405; J2704; J3010; J3480; J3490

== ENCOUNTER 2020-03-30 06:19 | Outpatient (CLI) | payer MEDICARE, MEDICAID, OTHER ==
[2020-03-30 17:16] LABS: SARS-CoV-2 MS2 Positive; SARS-CoV-2 N Gene Negative; SARS-CoV-2 S Gene Negative; SARS-CoV-2 orf1ab Negative
== END 2020-03-30 06:20 | disposition home or self-care (01) ==
LOC: LABBT 06:19
PROVIDERS: ATTEND Urology
DX: Z01.812 Encounter for preprocedural laboratory examination (principal); Z11.59 Encounter for screening for other viral diseases; N20.0 Calculus of kidney; N18.4 Chronic kidney disease, stage 4 (severe); G80.9 Cerebral palsy, unspecified
CPT/HCPCS: 87635; U0003

== ENCOUNTER 2020-03-31 08:35 | Day surgery (SDC) | payer MEDICARE, MEDICAID ==
[2020-03-30 10:19] VITALS: BMI 32.7
[2020-03-31] MEDS ORDERED: B & O ONE (10:06)
[2020-03-31] MEDS ORDERED: Iopamidol 0 ML FS ONE (10:06)
[2020-03-31] MEDS ORDERED: Levofloxacin 500 mg/D5W 100 ml Premix Bag ONE (10:20)
[2020-03-31] MEDS ORDERED: Fentanyl 100 MCG/2 ML VIAL ONE (10:24)
[2020-03-31] MEDS ORDERED: EPHEDRINE 25 MG/5 ML SYRINGE ONE (12:19)
[2020-03-31] MEDS ORDERED: PROPOFOL 200 MG/20 ML VIAL ONE (12:19)
[2020-03-31] MEDS ORDERED: PHENYLEPHRINE-NS 100 MCG/ML 10 ML SYRINGE ONE (12:19)
[2020-03-31] MEDS ORDERED: Glycopyrrolate 0.2 MG/ML 5 ML SYRINGE ONE (12:19)
[2020-03-31] MEDS ORDERED: Ondansetron PF 4 MG/2 ML Vial ONE (12:19)
[2020-03-31] MEDS ORDERED: Lidocaine 1% PF 5 ML VIAL ONE (12:19)
[2020-03-31] MEDS ORDERED: Dexamethasone 20 MG/5 ML VIAL ONE (12:19)
--- NOTE | 2020-03-31 17:36 | EKG ---
Test Reason : PREOP Blood Pressure : / mmHG Vent. Rate : 075 BPM Atrial Rate : 075 BPM P-R Int : 162 ms QRS Dur : 096 ms QT Int : 430 ms P-R-T Axes : 064 038 023 degrees QTc Int : 480 ms Normal sinus rhythm Prolonged QT Abnormal ECG No previous ECGs available Confirmed by DR. Miugel SERNA MD ([id number]) on 03/31/2020 5:35:31 PM Referred By: TR Confirmed By:DR. Miguel SERNA MD
--- NOTE | 2020-03-31 19:46 | OP ---
DATE OF PROCEDURE: 03/31/2020 SERVICE: Urology. PREOPERATIVE DIAGNOSIS: Left ureteral and renal stones. POSTOPERATIVE DIAGNOSIS: Left ureteral and renal stones. PROCEDURE PERFORMED: Left ureteroscopy, laser lithotripsy, basket extraction of stones and placement of 6 x 26 double-J stent. INDICATION FOR PROCEDURE: Mr. Carter is a 59-year-old white male with cerebral palsy and MR, who presented with elevated creatinine and discovery of a left distal ureteral stone. He was in renal failure at that time due to a solitary functioning left kidney. He underwent urgent stent placement and is now returning for definitive stone management. Risks and benefits have been discussed with the [id number], who is his power of divorce attorney and she has agreed to proceed forward. DESCRIPTION OF PROCEDURE: After identification of armband and verification of consent, the patient was brought back to the operating room, where he underwent general anesthesia with LMA. He was placed in dorsal lithotomy position and prepped and draped in usual sterile fashion. After appropriate time-out, a lubricated 22-Namibian rigid cystoscope was introduced per urethra into the bladder. Attention was turned to left ureteral orifice, from which there was a stent emanating. Flexible grasper was used to grasp the stent and bring it up to the level of the urethral meatus. Attempts to pass a wire through the stent was unsuccessful as the coil was restricting movement of the wire; therefore, the stent was removed in its entirety and the cystoscope was reintroduced back into the bladder and the wire fed directly up to the left ureter past the stone into renal pelvis. The cystoscope was then removed and a dual-lumen catheter was advanced over the Sensor wire up to the level of the mid ureter just distal to the stone. An Amplatz Super Stiff wire was then used to navigate past the stone into the renal pelvis and then the dual lumen removed. The Sensor wire was affixed to the drapes as a safety wire and a 11/13 x 28 cm ureteral access sheath was advanced over the Super Stiff wire up to the level of the stone. The inner cannula and the Super Stiff wire were then removed leaving the outer sheath and Sensor wire in place. A flexible digital ureteroscope was then advanced up to the stone and a 275 micron ball-tip laser fiber was used to fragment the stone into small pieces and then a 1.9-Namibian ZeroTip Nitinol basket was used to remove all the stone fragments. Ureteroscopy was then performed up to the renal pelvis, at which point there was noted to be an extremely large burden of very small between 5 to 1 mm stones within the renal pelvis in the upper calyx. Initial attempts to basket proved futile as there was innumerable amounts of stones, although some of the larger stones were removed. The basket did become nonfunctional at this point and we switched out to 1.9-Namibian Jaiden basket for removal of some additional stones as well as switching out the sheath to a 13/15 x 46 cm ureteral access sheath over a Super Stiff wire. After basketing for a while longer, we attempted to try to irrigate the renal pelvis to remove a lot of the stone and this was successful in removing approximately 90% of the stone material. Final pyeloscopy demonstrated there was still additional small fragments within the renal pelvis, but most of the fragments were all under 3 mm, so the larger fragments were removed until there were no fragments remaining that were probably above 2 mm. At that point, I did feel that the remaining stones were probably futile to magno, and at this point, the patient had been having ureteroscopy for 2 hours and thought it would be best to go ahead and end the procedure to avoid a prolonged ureteroscopy and affecting his renal concentrating gradients. Therefore, a pull-back ureteroscopy was employed and no additional significant stone fragments were found within the ureter. The cystoscope was then backloaded over the Sensor wire back into the bladder and a 6 x 26 double-J stent advanced over the Sensor wire up to the level of renal pelvis. The wire was removed leaving a good curl in the kidney and a good curl in the bladder. The bladder was then emptied and cystoscope removed. A 16-A B and O suppository was placed in the patient's rectum. The patient was then taken out of position, awakened, taken to PACU for recovery in stable condition. COMPLICATIONS: None. ESTIMATED BLOOD LOSS: Minimal. RETAINED TUBES AND DRAINS: A 6 x 26 double-J stent on the left. SPECIMENS: Stone for stone analysis. DISPOSITION: The patient will follow up with me in 1 week for cystoscopy and stent removal. Job ID: [id number]
[2020-04-08 17:09] LABS: CA Hydrogen Phos 10 % (.); CA Oxalate Monohydrate 50 % (.); Color Brown (.); Stone Weight 690 mg (.)
== END 2020-03-31 13:58 ==
LOC: SDC 08:35
PROVIDERS: ATTEND Urology
PROC: 0TC48ZZ Extirpation of Matter from Left Kidney Pelvis, Via Natural or Artificial Opening Endoscopic (ICD-10-PCS; principal; 2020-03-31)
PROC: 0TC78ZZ Extirpation of Matter from Left Ureter, Via Natural or Artificial Opening Endoscopic (ICD-10-PCS; 2020-03-31)
PROC: 0T778DZ Dilation of Left Ureter with Intraluminal Device, Via Natural or Artificial Opening Endoscopic (ICD-10-PCS; 2020-03-31)
DX: N20.2 Calculus of kidney with calculus of ureter (principal); G80.9 Cerebral palsy, unspecified; I34.0 Nonrheumatic mitral (valve) insufficiency; Z79.899 Other long term (current) drug therapy; Z88.2 Allergy status to sulfonamides; Z88.8 Allergy status to other drugs, medicaments and biological substances
CPT/HCPCS: 52356; 76000; 82365; 88300; 93005; C1769; 93010; J1100; J1956; J2001; J2405; J2704; J3010; Q9967